=== PATIENT | male | born 1975 | race American Indian/Alaskan Native ===

== ENCOUNTER 2017-01-28 16:26 | Emergency (ER) | payer SELFPAY ==
[2017-01-28 16:42] VITALS: BP 120/81
--- NOTE | 2017-01-28 19:34 | XRay Report ---
FINAL REPORT PROCEDURE: XR RIBS UNI W PA CHEST 3 RT TECHNIQUE: RIGHT rib radiographs, 3 views of the ribs, including PA chest. HISTORY: Right rib and back pain. COMPARISON: No prior studies are available for comparison. FINDINGS: Heart: Normal. Mediastinum/Vessels: Normal. Lungs: Normal. Pleural space: Normal. Pneumothorax: None. Bony thorax/ribs: No significant abnormality. Slight levo scoliotic curvature of the spine. Small multilevel osteophytes in the spine. IMPRESSION: No radiographic evidence of displaced rib fracture.
--- NOTE | 2017-01-28 21:33 | Emergency Department Report ---
ED Fall HPI - General Chief Complaint: Fall Stated Complaint: RIB INJURY FROM FALL Time Seen by Provider: 01/28/17 20:23 Source: patient Mode of arrival: Ambulatory - History of Present Illness Initial Comments: 41-year-old male past medical history none presents with complaint of right sided chest wall pain. Patient states that he slipped yesterday while walking down street. Patient states he fell on his right side. Complaining of mild right sided pain along costal margin. Patient denies any shortness of breath no nausea no vomiting denies sustaining any lacerations was able to immediately stand up after fall. Patient states that he has mild discomfort as he turns his trunk and pain directly overlying his right side ribs. is awake alert and oriented 3 denies sustaining any head trauma denies any loss of consciousness speaking in full sentences no visible signs of respiratory distress no wheezing no stridor no respiratory retractions MD Complaint: fall Onset/Timin -: days(s) Fall From: standing Prolonged Down Time?: no Symptoms Prior to Fall: none Location: chest (right side chest wall) Severity scale (0 -10): 6 Quality: aching Context: tripped/slipped - Related Data Previous Rx's Medication Instructions Recorded Last Taken Type Cephalexin [Keflex] 500 mg PO Q6H #40 capsule 04/25/14 Unknown Rx HYDROcodone/APAP 7.5-325 [[place] 1 each PO Q6HR PRN #25 tablet 04/25/14 Unknown Rx 7.5/325 mg] Ibuprofen [Motrin] 600 mg PO Q8H PRN #60 tablet 04/25/14 Unknown Rx Naproxen [Naprosyn TAB] 500 mg PO BID PRN #30 tablet 01/28/17 Unknown Rx Allergies Allergy/AdvReac Type Severity Reaction Status Date / Time No Known Allergies Allergy Unverified 04/24/14 20:28 ED Review of Systems ROS: Stated complaint: RIB INJURY FROM FALL Other details as noted in HPI Constitutional: denies: chills, fever Eyes: denies: eye pain, eye discharge, vision change ENT: denies: ear pain, throat pain Respiratory: denies: cough, shortness of breath, wheezing Cardiovascular: denies: chest pain, palpitations Endocrine: no symptoms reported Gastrointestinal: denies: abdominal pain, nausea, diarrhea Genitourinary: denies: urgency, dysuria Musculoskeletal: denies: back pain, joint swelling, arthralgia Skin: denies: rash, lesions Neurological: denies: headache, weakness, paresthesias Psychiatric: denies: anxiety, depression Hematological/Lymphatic: denies: easy bleeding, easy bruising ED Past Medical Hx - Past Medical History Previous Medical History?: Yes - Surgical History Past Surgical History?: No - Social History Smoking Status: Current Every Day Smoker Substance Use Type: Alcohol, Other - Medications Home Medications: Home Medications Medication Instructions Recorded Confirmed Last Taken Type Cephalexin [Keflex] 500 mg PO Q6H #40 capsule 04/25/14 Unknown Rx HYDROcodone/APAP 7.5-325 [[place] 1 each PO Q6HR PRN #25 tablet 04/25/14 Unknown Rx 7.5/325 mg] Ibuprofen [Motrin] 600 mg PO Q8H PRN #60 tablet 04/25/14 Unknown Rx Naproxen [Naprosyn TAB] 500 mg PO BID PRN #30 tablet 01/28/17 Unknown Rx ED Physical Exam - General Limitations: No Limitations General appearance: alert, in no apparent distress - Head Head exam: Present: atraumatic, normocephalic - Eye Eye exam: Present: normal appearance, PERRL, EOMI - ENT ENT exam: Present: mucous membranes moist - Neck Neck exam: Present: normal inspection, full ROM - Respiratory Respiratory exam: Present: normal lung sounds bilaterally, chest wall tenderness (mild reproducible right side chest wall tenderness). Absent: respiratory distress - Cardiovascular Cardiovascular Exam: Present: regular rate, normal rhythm. Absent: systolic murmur, diastolic murmur, rubs, gallop - GI/Abdominal GI/Abdominal exam: Present: soft, normal bowel sounds - Rectal Rectal exam: Present: deferred - Extremities Exam Extremities exam: Present: normal inspection, full ROM - Back Exam Back exam: Present: normal inspection - Neurological Exam Neurological exam: Present: alert, oriented X3, CN II-XII intact, normal gait - Psychiatric Psychiatric exam: Present: normal affect, normal mood - Skin Skin exam: Present: warm, dry, intact, normal color. Absent: rash ED Course Vital Signs 01/28/17 16:37 Temperature 98.4 F Pulse Rate 87 Respiratory 20 Rate Blood Pressure 120/81 O2 Sat by Pulse 100 Oximetry ED Medical Decision Making - Medical Decision Making A/P: Rib contusion right side 1-naproxen PRN 2- f/u with PMD 3- xray negative for rib fractures 4- incentive spirometer given to pt w/ instrcutions 5- FAST Scan negative FAST ESTEFANIA Cisse at bedside: Anatomical Areas Surveyed During Exam: Pauly-hepatic/Sherman's Pouch/Hepato-Renal Recess: NO echogenic stripe/fluid collection seen on exam Pericardial: NO pericardial effusion seen on exam Pelvic: No echogenic stripe seen surrounding the bladder Perisplenic: No randy-splenic collection, no echogenic stripe Critical care attestation.: If time is entered above; I have spent that time in minutes in the direct care of this critically ill patient, excluding procedure time. ED Disposition Clinical Impression: Contusion of rib on right side Qualifiers: Encounter type: initial encounter Qualified Code(s): S20.211A - Contusion of right front wall of thorax, initial encounter Disposition: DISCHARGED TO HOME OR SELFCARE Is pt being admited?: No Does the pt Need Aspirin: No Condition: Stable Instructions: How to Use an Incentive Spirometer (ED), Costochondritis (ED), Contusion in Adults (ED) Prescriptions: Naproxen [Naprosyn TAB] 500 mg PO BID PRN #30 tablet PRN Reason: Pain Referrals: BARRERA CALABRESE MD [Staff Physician] - 3-5 Days Forms: Work/School Release Form(ED) Time of Disposition: 21:34
== END 2017-01-28 21:35 | disposition home or self-care (01) ==
LOC: ED 16:26
DX: S20.211A Contusion of right front wall of thorax, initial encounter (principal); F17.200 Nicotine dependence, unspecified, uncomplicated; W19.XXXA Unspecified fall, initial encounter; Y93.01 Activity, walking, marching and hiking; Y99.8 Other external cause status; Y92.488 Other paved roadways as the place of occurrence of the external cause

== ENCOUNTER 2017-11-02 18:20 | Emergency (ER) | payer SELFPAY ==
[2017-11-02 19:46] VITALS: BP 117/75
--- NOTE | 2017-11-02 20:27 | XRay Report ---
FINAL REPORT PROCEDURE: XR ANKLE 3+V LT TECHNIQUE: LEFT ankle radiographs, AP, lateral, and oblique views. CPT 41010 HISTORY: ankle pain/swelling r/t injury COMPARISON: No prior studies are available for comparison. FINDINGS: Fracture (s) and/or Dislocation(s): None. Alignment: Normal. Joint space(s): Normal. Soft tissues: Normal. Bone mineralization: Normal. Foreign bodies: None. Calcaneal spurring: None. IMPRESSION: Normal Examination.
[2017-11-03] MEDS ORDERED: MOTRIN ONE (05:36)
== END 2017-11-03 05:35 | disposition home or self-care (01) ==
LOC: ED 18:20
DX: M79.89 Other specified soft tissue disorders (principal); M25.571 Pain in right ankle and joints of right foot; Z53.21 Procedure and treatment not carried out due to patient leaving prior to being seen by health care provider